=== PATIENT | female | born 1975 | race Caucasian/White ===

== ENCOUNTER 2016-10-26 23:03 | Emergency (ER) | payer OTHER | END 2016-10-27 01:20 | disposition home or self-care (01) | LOC: ER1 23:03 | DX: I10 Essential (primary) hypertension (principal); F41.9 Anxiety disorder, unspecified; Z88.0 Allergy status to penicillin; Z79.899 Other long term (current) drug therapy | CPT/HCPCS: 99283 ==

== ENCOUNTER 2021-12-07 11:58 | Emergency (ER) | payer OTHER ==
[2021-12-07 13:43] LABS: HEMOGLOBIN 15.9 gm/dl (12.3-15.3); RED BLOOD COUNT 5.36 M/UL (4.00-5.10); WHITE BLOOD COUNT 11.3 K/UL (4.5-11.0)
[2021-12-07 14:23] LABS: BUN/CREATININE RATIO 16 (0-10)
[2021-12-07] MEDS ORDERED: PROPRANOLOL HCL40 MG PO (17:54)
== END 2021-12-07 18:00 | disposition home or self-care (01) ==
LOC: ER1 11:58
PROVIDERS: Physician Assistant Medical
DX: R07.89 Other chest pain (principal); R11.0 Nausea; I10 Essential (primary) hypertension
CPT/HCPCS: 71045; 80053; 81001; 82550; 82553; 84439; 84443; 84484; 84703; 85025; 93005; 99285